=== PATIENT | female | born 1990 | race Caucasian/White ===

== ENCOUNTER 2016-11-26 03:22 | Inpatient (IN) | payer BC, OTHER ==
[~2016-11-26] VITALS: Ht 180.3 cm; Wt 108.9 kg
[2016-11-26 04:38] LABS: HEMOGLOBIN 10.2 gm/dl (12.3-15.3); RED BLOOD COUNT 4.05 M/UL (4.00-5.10); WHITE BLOOD COUNT 10.8 K/UL (4.5-11.0)
[2016-11-27 03:03] LABS: HEMOGLOBIN 9.4 gm/dl (12.3-15.3)
== END 2016-11-27 11:30 | disposition home or self-care (01) | DRG 775 ==
LOC: GENOP 03:22 → OB 04:14
PROVIDERS: Obstetrics & Gynecology; ADMIT Obstetrics & Gynecology
PROC: 10E0XZZ Delivery of Products of Conception, External Approach (ICD-10-PCS; principal; 2016-11-26)
PROC: 0KQM0ZZ Repair Perineum Muscle, Open Approach (ICD-10-PCS; 2016-11-26)
PROC: 3E0234Z Introduction of Serum, Toxoid and Vaccine into Muscle, Percutaneous Approach (ICD-10-PCS; 2016-11-27)
DX: O69.81X0 Labor and delivery complicated by cord around neck, without compression, not applicable or unspecified (principal); O62.2 Other uterine inertia; Z3A.40 40 weeks gestation of pregnancy; Z37.0 Single live birth; O70.1 Second degree perineal laceration during delivery; Z23 Encounter for immunization
CPT/HCPCS: 36415; 51702; 82800; 85014; 85018; 85025; 90715; J2210; J2300; J2590; J2795; J3010; J3430; J7120